=== PATIENT | female | born 1975 | race Caucasian/White ===

== ENCOUNTER → 2017-04-16 | Outpatient (CLI) | payer OTHER ==
--- NOTE | 2017-04-16 13:23 | RAD ---
DATE: 04/16/2017 EXAM: MAMMO SULY DAISY BILAT, BREAST BILATERAL HISTORY: Bilateral breast lumps. COMPARISON: None. This study was interpreted with the benefit of Computerized Aided Detection (CAD). The breast parenchyma is heterogeneously dense, which could reduce sensitivity of mammography. Breast parenchyma level C. FINDINGS: Digital MLO and CC mammograms of both breasts were obtained. Additional CC digital mammograms of both breasts were obtained. Digital breast tomosynthesis images (3D mammography) of both breasts were obtained in the MLO and CC projections. Additionally a real-time ultrasound examination of the right breast at the 12 and 11:00 position and the upper outer quadrant of the left breast in the areas where the patient feels palpable abnormalities was performed. The breast parenchyma is heterogeneously dense which can obscure a lesion on mammography (breast density code C). The patient's previous mammograms were performed somewhere in [place] and are unvailable for comparison at this time. The breast parenchyma is heterogeneous dense which can obscure a lesion on mammography (breast density code C). No spiculated mass is seen. No malignant appearing calcification or area of architectural distortion is noted. Digital breast tomosynthesis images demonstrate no spiculated mass or malignant appearing calcification. On ultrasound of the right breast at the 11 and 12:00 position dense breast parenchyma is seen. No solid or cystic mass is noted. Within the upper outer quadrant of the left breast dense breast parenchyma is noted. Multiple simple cysts are seen which measure 6 mm to 9 mm in size. No solid mass is noted. I would recharacterize the patient's mammograms as a BI-RADS Category 2 benign findings with a recommendation for routine yearly screening mammography for follow-up. IMPRESSION: BI-RADS Category 2 benign findings. There is no mammographic evidence of malignancy. Routine yearly screening mammography is recommended for follow-up. BI-RADS CATEGORY: 2 BENIGN FINDING(S) RECOMMENDED FOLLOW-UP: 12M 12 MONTH FOLLOW-UP PQRS compliance statement: Patient information was entered into a reminder system with a target due date 04/16/2018 for the next mammogram. Mammography is a sensitive method for finding small breast cancers, but it does not detect them all and is not a substitute for careful clinical examination. A negative mammogram does not negate a clinically suspicious finding and should not result in delay in biopsying a clinically suspicious abnormality. "Our facility is accredited by the [employer] Mammography Program."
== END | disposition home or self-care (01) ==
LOC: MAMMO 10:00
PROVIDERS: ATTEND Nurse Practitioner Family
DX: N60.02 Solitary cyst of left breast (principal); N63 Unspecified lump in breast
CPT/HCPCS: 76641; G0204; G0279; 77062; 77066